=== PATIENT | female | born 1955 | race Caucasian/White ===

== ENCOUNTER 2016-06-16 08:49 | Day surgery (SDC) | payer BC ==
[2016-06-16] MEDS ORDERED: PROPOFOL 20 ML IV ONE (09:03)
[2016-06-16] MEDS ORDERED: SEVOFLURANE 16 TO 30 MINUTES. IH ONE (09:03)
[2016-06-16] MEDS ORDERED: LIDOCAINE 2% 100 MG/5 ML DISP.SYRIN. ONE (09:03)
[2016-06-16] MEDS ORDERED: BUPIVACAINE MPF 0.5% 30 ML VIAL. ONE (09:39)
[2016-06-16] MEDS ORDERED: POVIDONE-IODINE 10% TOPICAL OINTMENT 28GM TUBE. TP ONE (09:39)
[2016-06-16] MEDS ORDERED: LIDOCAINE 1% PF 30 ML VIAL. ONE (09:39)
[2016-06-16] MEDS ORDERED: DEXAMETHASONE SOD PHOS 4 MG/ML VIAL ONE (09:39)
[2016-06-16] MEDS ORDERED: CEFAZOLIN 2GM PREMIX 50 ML IV ONE (09:56)
[2016-06-16] MEDS ORDERED: IV RINGERS,LACTATED 1000ML 1,000 ML IV ONE (10:00)
[2016-06-16] MEDS ORDERED: FENTANYL PF 100 MCG/2 ML VIAL. ONE (11:06)
[2016-06-16] MEDS ORDERED: ONDANSETRON PF 4 MG/2 ML VIAL. ONE (11:36)
[2016-06-16] MEDS ORDERED: DEXAMETHASONE SOD PHOS 20 MG/5 ML VIAL. ONE (11:37)
--- NOTE | 2016-06-16 11:57 | PDOC4 ---
Operative Note Operative Note Surgeon: Dianelys Preop DX: symptomatic hardware left foot PostopDX: same Procedure: Removal of screw left foot 5th metatarsal Anesthesia: MAC with local Hemostasis: Left ankle tourniquet at 250mmHg EBL: 0mL Materials 3-0 vicryl, 4-0 nylon Intraoperative findings: note screw intact no backing out easily removed from 5th metatarsal head Patient tolerated anesthesia and procedure well transferred to PACU with VSS and VSI to left foot CLEMENTE MORELAND DPM Jun 16, 2016 11:57
--- NOTE | 2016-06-16 12:30 | OP ---
DATE OF SURGERY: 06/16/2016 PREOPERATIVE DIAGNOSIS: Symptomatic hardware of the left foot fifth metatarsal. POSTOPERATIVE DIAGNOSIS: Symptomatic hardware of the left foot fifth metatarsal. PROCEDURE: Removal of hardware, which has a screw to the left fifth metatarsal. SURGEON: Jazmin Ivory DPM ANESTHESIA: MAC with local. HEMOSTASIS: Left ankle tourniquet at 250 mmHg. INDICATIONS: The patient is a 61-year-old female who underwent a fifth metatarsal osteotomy for treatment of tailor's bunion in 2011. She healed uneventfully, but recently had been noticing more and more pain to the hardware site with shoe gear. Thus, the patient wished to proceed with removal of hardware from the fifth metatarsal. Discussed preoperative diagnosis as well as possible benefits, risks and complications in detail. All questions were answered. No guarantees made. The patient signed consent freely and was put in chart. DESCRIPTION OF PROCEDURE: The patient was given 2 grams of IV Ancef preoperatively. IV sedation was administered per anesthesia and a reverse Reeves block was administered to the fifth ray consisting of a 1:1 mixture of 1% lidocaine plain and 0.5% Marcaine plain. The well-padded tourniquet was placed over the left ankle and the left foot was then prepped and draped in the usual aseptic manner. Esmarch bandage was used to exsanguinate the left foot and left ankle tourniquet was inflated to 250 mmHg. The attention was directed to the left foot where proximal to the previous incision, a 1 cm incision was made just over the screw head. This was deepened down to the level of the screw. Small vessel was cauterized and the screw head was identified and was easily removed with screwdriver. This was then sent to be ____. This was removed in toto. No pus was noted. No sinus tracking, no signs of infection. The wound was then copiously irrigated with sterile saline. The periosteum was reapproximated with 3-0 Vicryl and the skin was reapproximated with 4-0 nylon. Postop injection was given of 0.5 mL of Decadron and the wound was then dressed with Betadine ointment, Adaptic gauze, 4 x 4s, Kerlix and an Raghu bandage. The patient is to be weightbearing as tolerated in a surgical shoe to the left foot. She is to keep dressing clean, dry and intact. We will follow up in clinic next week for dressing change. Postop instructions are in the chart. JAZMIN IVORY DPM DR: Rip JOB#: [id number] / [id number]
[2016-06-16 12:48] VITALS: BP 141/60
== END 2016-06-16 13:31 | disposition home or self-care (01) ==
LOC: SURG 08:49
PROVIDERS: ATTEND Podiatrist Foot & Ankle Surgery
DX: T84.84XA Pain due to internal orthopedic prosthetic devices, implants and grafts, initial encounter (principal); G89.18 Other acute postprocedural pain; E78.00 Pure hypercholesterolemia, unspecified; Z90.710 Acquired absence of both cervix and uterus; Z72.89 Other problems related to lifestyle; Y83.1 Surgical operation with implant of artificial internal device as the cause of abnormal reaction of the patient, or of later complication, without mention of misadventure at the time of the procedure; Z82.49 Family history of ischemic heart disease and other diseases of the circulatory system
CPT/HCPCS: 20680; C1769; J0690; J1100; J2405; J2704; J3010; J3490